=== PATIENT | female | born 1995 | race African-American/Black ===

== ENCOUNTER 2017-07-05 18:17 | Emergency (ER) | payer SELFPAY ==
[2017-07-05 19:20] LABS: #Basophils 0.1 thou/uL (0.0-0.2); #Eosinphils 0.1 thou/uL (0.0-0.7); #Lymphocytes 1.6 thou/uL (1.20-3.40); #Monocytes 0.5 thou/uL (0.11-0.59); #Neutrophils 4.1 thou/uL (1.40-6.50); %Basophils 0.9 % (0.0-1.0); %Eosinophils 0.9 % (0.0-10.0); %Lymphocytes 25.8 % (21.0-51.0); %Monocytes 7.6 % (0.0-10.0); %Neutrophils 64.8 % (42.0-75.0); Hemoglobin 12.3 g/dL (12.0-16.0); Mean Corpuscular Hemoglobin 30.6 pg (27.0-31.0); Mean Corpuscular Volume 92.5 fl (81.0-99.0); Mean Platelet Volume 6.6 fL (7.4-10.4); Platelet Count 323 thou/uL (130-400); RBC Distribution Width 11.2 % (11.5-14.5); Red Blood Cell (RBC) Count 4.04 mill/uL (4.20-5.40); White Blood Cell (WBC) Count 6.3 thou/uL (4.8-10.8)
[2017-07-05 19:37] LABS: Bilirubin Negative (Negative); Blood, Urine Negative (Negative); Clarity CLEAR (Clear); Glucose, Urine (Dipstick) Negative (Negative); Leukocyte Negative (Negative); Nitrite Negative (Negative); Protein, Urine (Dipstick) Negative (Neg-Trace); Specific Gravity, Urine 1.027 (1.002-1.036); pH, Urine 6.5 (5.0-9.0)
[2017-07-05 19:40] LABS: ALT (SGPT) 12 U/L (8-55); AST (SGOT) 12 U/L (5-34); Albumin 4.2 g/dL (3.5-5.0); Alkaline Phosphatase 55 U/L (40-150); Anion Gap 10 mmol/L (10-20); BUN (Urea Nitrogen) 16 mg/dL (7.0-18.7); Bilirubin, Total 0.3 mg/dL (0.2-1.2); Calc. Creatinine Clearance 0 mL/min (70-130); Calcium 9.1 mg/dL (7.8-10.44); Carbon Dioxide 24 mmol/L (22-29); Chloride 106 mmol/L (98-107); Estimated GFR-MDRD Greater than 90; Glucose 97 mg/dL (70-105); Potassium 3.9 mmol/L (3.5-5.1); Protein, Total 7.2 g/dL (6.0-8.3); Sodium 136 mmol/L (136-145)
== END 2017-07-05 22:15 | disposition home or self-care (01) ==
LOC: ERS 18:17
DX: O99.89 Other specified diseases and conditions complicating pregnancy, childbirth and the puerperium (principal); R10.9 Unspecified abdominal pain; Z3A.01 Less than 8 weeks gestation of pregnancy
CPT/HCPCS: 36415; 80053; 81003; 84702; 85025

== ENCOUNTER 2017-08-06 13:14 | Emergency (ER) | payer SELFPAY | END 2017-08-06 15:36 | disposition left against medical advice (07) | LOC: ERS 13:14 | DX: Z53.21 Procedure and treatment not carried out due to patient leaving prior to being seen by health care provider (principal) ==

== ENCOUNTER 2017-10-04 09:06 | Outpatient (CLI) | payer BC | END 2017-10-04 09:07 | disposition home or self-care (01) | LOC: BICULT 09:06 | PROVIDERS: ATTEND Nurse Practitioner | DX: O09.92 Supervision of high risk pregnancy, unspecified, second trimester (principal) | CPT/HCPCS: 76805 ==

== ENCOUNTER 2018-02-13 07:30 | Inpatient (IN) | payer BC, OTHER ==
[2018-02-13] MEDS: Lactated Ringer's 1,000 ML IV SCH ×2 (10:47→12:43)
[2018-02-13] MEDS ORDERED: Ondansetron PF 4 MG/2 ML Vial IVP PRN ×3 (10:53→17:03)
[2018-02-13] MEDS ORDERED: CEFAZOLIN/Water 2 GM/20 ML SYRINGE SLOW IVP SCH (11:00)
[2018-02-13] MEDS ORDERED: CEFAZOLIN 2 GM/50 ML-DEXTROSE 2 GM in Premix Bag 1 BAG IVPB SCH (11:00)
[2018-02-13] MEDS ORDERED: Bicitra 30 ML UDCUP PO SCH (11:00)
[2018-02-13] MEDS ORDERED: Promethazine HCl 25 MG/ML VIAL IM PRN ×2 (11:08)
[2018-02-13] MEDS ORDERED: diphenhydrAMINE 50 MG/ML VIAL IVP PRN ×2 (11:08→19:14)
[2018-02-13] MEDS ORDERED: Eucerin (Mineral Oil/Petrolatum,White) 30 gm Jar TOP PRN (11:08)
[2018-02-13] MEDS ORDERED: Naloxone HCl 0.4 mg/ml Vial IVP PRN ×4 (11:08→19:15)
[2018-02-13] MEDS ORDERED: Ondansetron HCl/PF 4 MG/2 ML Vial IVP PRN (11:08)
[2018-02-13] MEDS ORDERED: Morphine Sulfate 2 MG/ML SYRINGE SLOW IVP PRN (11:08)
[2018-02-13] MEDS ORDERED: Promethazine HCl 25 MG/ML VIAL SLOW IVP PRN (11:08)
[2018-02-13] MEDS ORDERED: Promethazine HCl 25 MG SUPP PR PRN (11:08)
[2018-02-13] MEDS ORDERED: Ketorolac Tromethamine 30 MG/ML VIAL IVP PRN (11:08)
[2018-02-13] MEDS ORDERED: Naloxone HCl 0.4 mg/ml Vial IV PRN (11:08)
[2018-02-13 11:09] LABS: Hemoglobin 12.3 g/dL (12.0-16.0); Mean Corpuscular HGB CONC 33.8 g/dL (32.0-36.0); Mean Corpuscular Hemoglobin 31.2 pg (27.0-31.0); Mean Corpuscular Volume 92.2 fL (78.0-98.0); Platelet Count 238 thou/uL (130-400); RBC Distribution Width 12.7 % (11.5-14.5); Red Blood Cell (RBC) Count 3.94 mill/uL (4.20-5.40); White Blood Cell (WBC) Count 6.6 thou/uL (4.8-10.8)
[2018-02-13] MEDS ORDERED: Communication Order-Pharmacy FS SCH ×2 (11:15→19:15)
[2018-02-13 11:47] LABS: HBSAg Index 0.21 S/CO (0-0.99); Hep B Surf Ag Non-Reactive S/CO (NonReactive); Syphilis Antibody Nonreactive (Nonreactive); Syphilis Antibody Index 0.05 S/CO (<1.00 Non-Reactive)
[2018-02-13 11:55] VITALS: BMI 29.9
[2018-02-13] MEDS ORDERED: Succinylcholine Chloride 20 MG/ML 10 ml SYRINGE FS ONE (12:44)
[2018-02-13] MEDS ORDERED: Oxytocin 10 UNITS/ML VIAL ONE ×2 (12:44→13:44)
[2018-02-13] MEDS ORDERED: PROPOFOL 0 ML ONE (12:44)
[2018-02-13] MEDS ORDERED: Morphine PF 1 MG/ML SYR ONE (12:45)
[2018-02-13] MEDS ORDERED: PHENYLEPHRINE-NS 100 MCG/ML 10 ML SYRINGE ONE (12:51)
[2018-02-13] MEDS ORDERED: Ondansetron PF 4 MG/2 ML Vial ONE (13:38)
[2018-02-13] MEDS ORDERED: Ketorolac Tromethamine 30 MG/ML VIAL ONE (13:52)
[2018-02-13] MEDS ORDERED: NS / Oxytocin 40 units/1000ml 1,000 ML IV SCH (17:03)
[2018-02-13] MEDS ORDERED: Bisacodyl 10 MG SUPP PR PRN (17:03)
[2018-02-13] MEDS ORDERED: Lanolin Ointment 7 GM TUBE TOP PRN (17:03)
[2018-02-13] MEDS ORDERED: diphenhydrAMINE 25 MG CAP PO PRN (17:03)
--- NOTE | 2018-02-13 20:06 | PDOC.OPDEL ---
OB Operative/Delivery Note Delivery Dr/Surgeon: Leo Paula Assist: Shikha, PGY-2 Pre-Delivery Diagnosis: scheduled section Procedure/Post Delivery Dx: repeat low transverse CS - Additional Findings/Plan Placenta delivered: manual removal findings: low transverse hysterotomy without extension, normal uterus, normal tubes, normal ovaries Compilations/Other Findings: Procedure Note Date of Procedure: 02/13/2018 Resident Surgeon: Kennedy Trivedi, PGY-2 Attending Surgeon: Leo Paula Procedure: Repeat low transverse caesarean section Preoperative Diagnosis: 1)Term intrauterine 2)Previous Postoperative Diagnosis: 1)same as above plus any other findings during surgery Anesthesia: spinal Indications: The patient is a 22 year old female at 39.2 weeks gestation who presents for a repeat scheduled . Procedure in Detail: After risks, benefits, and alternatives were explained to the patient, she gave informed consent. Pre-operative antibiotics included Cefazolin 2 gram IV. The patient was taken to the operating room and spinal anesthesia was initiated. She was placed in the supine position with a left tilt and prepped and draped in usual sterile fashion. A Pfannenstiel incision was made with a scalpel and carried down to the level of the fascia which was sharply nicked. The fascial cut was extended bilaterally with curved Ace sissors. The inferior and superior edges of the cut fascial edges were elevated with Giancarlo clamps and the underlying rectus muscles were sharply and bluntly dissected free. The recti were divided digitally and retracted manually. The muscle had to be extended with bovie to make space for delivery. The peritoneum was entered bluntly and retracted manually. Bladder blade was placed. A low transverse score was made with the scalpel and the uterus was entered in the midline with the scalpel. Clear fluid was seen. The hysterotomy was extended manually. The was noted to be vertex and was easily delivered by fundal pressure. Mouth and nares were bulb suctioned. Cord clamped and cut and grossly normal male was handed to waiting nurse. Cord blood was obtained. Placenta was manually extracted, found to be intact with 3 vessel cord and discarded. The uterus was externalized and the endometrium was curetted with a dry lap. The bladder blade was replaced and the uterus was closed with a running locking 0-Vicryl. 2 horizontal matress 0- vicryl suture had to be place over the hysterotomy. There was noted to be a bleed on the posterior lower segment of the uterus. The myometrium was noted to be thin and likely bleed from closing hysterotomy. This was closed with an 0- vicryl horizontal matress. Following this hemostasis was noted. The abdomen was irrigated with saline and suctioned free of clots. The uterus was internalized and the hysterotomy was again noted to be hemostatic. The pertioneum was then reapproximanted with 3-0 vicryl in non-locking running suture. The muscle which had to be extended was repaired in with a 3-0 vicryl interrupted suture. The fascia was closed with a running non-locking 0-PDS suture. The subcutaneous tissue was irrigated and there were no bleeders. The subq was then approximated with 3-0 vicryl in interrupted fashion. The skin was approximated with di and a pressure dressing was placed. All counts were correct. The patient tolerated the procedure well and was taken to the recovery room in stable condition. Estimated Blood Loss: 800 ml Complications: NoneSpecimens: Cord blood sent to lab for blood type Findings: Grossly normal male/female with apgars of 9 and 9.. Grossly normal placenta with 3 vessel cord discarded Drains: Toure to gravity draining clear urine Post delivery plan: routine recovery
[2018-02-13] MEDS ORDERED: Ibuprofen 800 MG TAB PO SCH (22:00)
[2018-02-13] MEDS ORDERED: Meperidine HCl/PF 25 MG/ML VIAL IM PRN (23:15)
[2018-02-13] MEDS ORDERED: HYDROcodone/Acetaminophen 5/325 mg Tablet PO PRN (23:15)
[2018-02-13] MEDS: Ferrous Sulfate 325 MG TAB PO SCH (23:38)
[2018-02-13] MEDS: Docusate Calcium (SURFAK) 240 MG CAP PO SCH (23:38)
[2018-02-14] MEDS: Ketorolac Tromethamine 30 MG/ML VIAL IVP PRN ×2 (00:39→07:28)
[2018-02-14 06:19] LABS: Hemoglobin 9.4 g/dL (12.0-16.0); Mean Corpuscular HGB CONC 33.5 g/dL (32.0-36.0); Mean Corpuscular Hemoglobin 31.5 pg (27.0-31.0); Mean Platelet Volume 7.3 fL (7.4-10.4); Platelet Count 180 thou/uL (130-400); RBC Distribution Width 12.6 % (11.5-14.5); Red Blood Cell (RBC) Count 2.98 mill/uL (4.20-5.40); White Blood Cell (WBC) Count 7.5 thou/uL (4.8-10.8)
[2018-02-14] MEDS ORDERED: Sodium Chloride 0.9% 10 ML ONE ×2 (07:25→19:19)
[2018-02-14] MEDS: Prenatal Vitamin 1 TAB PO SCH (08:58)
[2018-02-14] MEDS: Docusate Calcium (SURFAK) 240 MG CAP PO SCH ×2 (08:58→20:12)
[2018-02-14] MEDS: Ferrous Sulfate 325 MG TAB PO SCH ×2 (08:58→20:12)
[2018-02-14] MEDS: Simethicone Chewable 80 MG TAB PO PRN ×3 (12:00→21:22)
[2018-02-14] MEDS: Ibuprofen 800 MG TAB PO SCH ×2 (13:35→21:22)
[2018-02-14] MEDS: HYDROcodone/Acetaminophen 5/325 mg Tablet PO PRN ×2 (15:50→20:12)
[2018-02-15] MEDS: HYDROcodone/Acetaminophen 5/325 mg Tablet PO PRN ×5 (02:05→20:49)
[2018-02-15] MEDS: Ibuprofen 800 MG TAB PO SCH ×2 (05:50→13:35)
[2018-02-15] MEDS: Simethicone Chewable 80 MG TAB PO PRN ×2 (06:09→12:13)
[2018-02-15] MEDS: Prenatal Vitamin 1 TAB PO SCH (08:24)
[2018-02-15] MEDS: Docusate Calcium (SURFAK) 240 MG CAP PO SCH (08:24)
[2018-02-15] MEDS: Ferrous Sulfate 325 MG TAB PO SCH (08:25)
[2018-02-15 11:45] VITALS: TEMP 98.3
[2018-02-15 21:09] VITALS: BP 137/93
== END 2018-02-15 20:56 | disposition home or self-care (01) | DRG 788 ==
LOC: L&D 09:54 → 3SW 17:03
PROVIDERS: ADMIT Family Medicine; ATTEND Family Medicine
PROC: 10D00Z1 Extraction of Products of Conception, Low, Open Approach (ICD-10-PCS; principal; 2018-02-13)
DX: O34.211 Maternal care for low transverse scar from previous cesarean delivery (principal); Z3A.39 39 weeks gestation of pregnancy; Z37.0 Single live birth
CPT/HCPCS: 36415; 51702; 85027; 86780; 86850; 86900; 86901; 87340; J1200; J1885; J2274; J2405; J2590; J2704

== ENCOUNTER 2019-03-05 19:18 | Emergency (ER) | payer BC, OTHER | END 2019-03-05 22:03 | disposition home or self-care (01) | LOC: ERS 19:18 | DX: K02.9 Dental caries, unspecified (principal); K03.81 Cracked tooth | CPT/HCPCS: 99282 ==

== ENCOUNTER 2019-06-23 18:10 | Emergency (ER) | payer OTHER, SELFPAY ==
[2019-06-24 11:36] LABS: SARS-CoV-2 MS2 Positive; SARS-CoV-2 N Gene Positive; SARS-CoV-2 S Gene Positive; SARS-CoV-2 orf1ab Positive
== END 2019-06-23 18:59 | disposition home or self-care (01) ==
LOC: ERS 18:10
DX: U07.1 COVID-19 (principal)
CPT/HCPCS: 87635; 99283; U0003

== ENCOUNTER 2019-07-16 03:00 | Emergency (ER) | payer BC, SELFPAY ==
[2019-07-16 03:40] LABS: Bacteria/HPF None Seen HPF (None Seen); Bilirubin Negative (Negative); Blood, Urine Negative (Negative); Clarity Clear (Clear); Glucose, Urine (Dipstick) Normal (Negative); Leukocyte 250 Leu/uL (Negative); Mucous/LPF 1+ LPF (<2+); Nitrite Negative (Negative); Protein, Urine (Dipstick) 20 mg/dL (Neg-Trace); Squamous Epithelial 0-3 HPF (0-3); WBC/HPF Greater than 50 HPF (0-3)
== END 2019-07-16 04:24 | disposition home or self-care (01) ==
LOC: ERS 03:00
DX: N39.0 Urinary tract infection, site not specified (principal)
CPT/HCPCS: 81003; 81015; 87077; 87086; 87186; 99283

== ENCOUNTER 2019-11-25 22:08 | Emergency (ER) | payer OTHER, SELFPAY | END 2019-11-25 23:03 | disposition home or self-care (01) | LOC: ERS 22:08 | DX: M79.642 Pain in left hand (principal); M79.641 Pain in right hand | CPT/HCPCS: 99281 ==

== ENCOUNTER 2019-12-09 22:23 | Emergency (ER) | payer SELFPAY ==
[2019-12-09 22:54] LABS: Bilirubin Negative (Negative); Blood, Urine Negative (Negative); Clarity Clear (Clear); Glucose, Urine (Dipstick) Normal (Negative); Ketone, Urine Negative (Negative); Leukocyte Negative Leu/uL (Negative); Nitrite Negative (Negative); Protein, Urine (Dipstick) Negative (Neg-Trace); Specific Gravity, Urine 1.024 (1.002-1.036); Urobilinogen Normal mg/dL (Less than 2); pH, Urine 6.5 (5.0-9.0)
[2019-12-09 22:56] LABS: Pregnancy Test - Urine (BHCG) Negative (Negative)
[2019-12-09 22:57] LABS: Pregu Control Background? CLEAR/WHITE (CLR/WHITE); Pregu Control Bar Appear? YES (CONTROL BAR); Specific Gravity 1.024 (1.002-1.036)
[2019-12-09] MEDS ORDERED: Ketorolac Tromethamine 30 MG/ML VIAL ONE (23:13)
[2019-12-09] MEDS ORDERED: Metoclopramide HCl 10 MG/2 ML VIAL ONE (23:13)
[2019-12-09] MEDS ORDERED: diphenhydrAMINE 50 MG/ML VIAL ONE (23:13)
== END 2019-12-10 00:08 | disposition home or self-care (01) ==
LOC: ERS 22:23
DX: R51.9 Headache, unspecified (principal); R11.2 Nausea with vomiting, unspecified
CPT/HCPCS: 81003; 81025; 96365; 96375; J1200; J1885; J2765

== ENCOUNTER 2020-07-08 19:21 | Emergency (ER) | payer SELFPAY | END 2020-07-08 19:49 | disposition home or self-care (01) | LOC: ERS 19:21 | DX: K64.4 Residual hemorrhoidal skin tags (principal) | CPT/HCPCS: 99282 ==

== ENCOUNTER 2020-09-24 18:21 | Emergency (ER) | payer BC, SELFPAY ==
[2020-09-25 16:48] LABS: SARS-CoV-2 PCR by NAA Not Detected (NotDetected)
== END 2020-09-24 20:42 | disposition home or self-care (01) ==
LOC: ERS 18:21
DX: R07.81 Pleurodynia (principal); R05 Cough; Z20.822 Contact with and (suspected) exposure to COVID-19
CPT/HCPCS: 99284; U0003; U0005

== ENCOUNTER 2021-07-13 19:16 | Emergency (ER) | payer BC | END 2021-07-13 20:09 | disposition home or self-care (01) | LOC: ERS 19:16 | DX: B07.9 Viral wart, unspecified (principal) | CPT/HCPCS: 99283 ==

== ENCOUNTER 2022-08-23 17:40 | Emergency (ER) | payer SELFPAY ==
[2022-08-23 18:14] LABS: #Monocytes 0.3 thou/uL (0.11-0.59); #Neutrophils 1.9 thou/uL (1.40-6.50); %Basophils 0.2 % (0.0-1.0); %Eosinophils 0.9 % (0.0-10.0); %Lymphocytes 48.9 % (21.0-51.0); %Monocytes 6.6 % (0.0-10.0); %Neutrophils 43.4 % (42.0-75.0); Hemoglobin 11.4 g/dL (12.0-16.0); Mean Corpuscular HGB CONC 33.2 g/dL (32.0-36.0); Mean Corpuscular Hemoglobin 29.6 pg (27.0-31.0); Mean Corpuscular Volume 89.1 fl (78.0-98.0); Platelet Count 293 10x3/uL (130-400); RBC Distribution Width 12.9 % (11.5-14.5); Red Blood Cell (RBC) Count 3.85 mill/uL (4.20-5.40); White Blood Cell (WBC) Count 4.4 10x3/uL (4.8-10.8)
[2022-08-23 18:27] LABS: Prothrombin Time 13.6 sec (12.0-14.7)
[2022-08-23 19:05] LABS: ALT (SGPT) 16 U/L (8-55); AST (SGOT) 19 U/L (5-34); Albumin 4.2 g/dL (3.5-5.0); Alkaline Phosphatase 75 U/L (40-110); Anion Gap 12 mmol/L (10-20); BUN (Urea Nitrogen) 16 mg/dL (7.0-18.7); Bilirubin, Total 0.4 mg/dL (0.2-1.2); Calc. Creatinine Clearance 0 mL/min (70-130); Calcium 9.4 mg/dL (7.8-10.44); Carbon Dioxide 23 mmol/L (22-29); Chloride 108 mmol/L (98-107); Estimated GFR 113; Globulin 3.2 g/dL (2.4-3.5); Glucose 99 mg/dL (70-105); Potassium 3.6 mmol/L (3.5-5.1); Protein, Total 7.4 g/dL (6.0-8.3); Sodium 139 mmol/L (136-145)
== END 2022-08-23 18:51 | disposition home or self-care (01) ==
LOC: ERS 17:40
DX: K60.2 Anal fissure, unspecified (principal); D72.819 Decreased white blood cell count, unspecified
CPT/HCPCS: 36415; 80053; 85025; 85610; 85730; 86850; 86900; 86901; 99284

== ENCOUNTER 2024-01-14 09:18 | Emergency (ER) | payer SELFPAY ==
[2024-01-14 11:52] LABS: ALT (SGPT) 13 U/L (8-55); AST (SGOT) 17 U/L (5-34); Albumin 3.8 g/dL (3.5-5.0); Alkaline Phosphatase 79 U/L (40-110); Anion Gap 12 mmol/L (10-20); BHCG - Serum Negative (NEGATIVE); BUN (Urea Nitrogen) 14 mg/dL (7.0-18.7); Bilirubin, Total 0.3 mg/dL (0.2-1.2); Calc. Creatinine Clearance 0 mL/min (70-130); Calcium 8.8 mg/dL (7.8-10.44); Carbon Dioxide 23 mmol/L (22-29); Chloride 104 mmol/L (98-107); Estimated GFR 123; Globulin 3.2 g/dL (2.4-3.5); Glucose 101 mg/dL (70-105); Pregs Control Background? CLEAR/WHITE (CLR/WHITE); Pregs Control Bar Appear? YES (CONTROL BAR); Sodium 135 mmol/L (136-145)
[2024-01-14 13:39] LABS: Red Blood Cell (RBC) Count 4.06 mill/uL (4.20-5.40)
[2024-01-14 13:40] LABS: %Basophils 0.1 % (0.0-1.0); %Eosinophils 1.3 % (0.0-10.0); %Lymphocytes 29.1 % (21.0-51.0); %Monocytes 6.6 % (0.0-10.0); %Neutrophils 62.6 % (42.0-75.0); Hematocrit 36.1 % (36.0-47.0); Hemoglobin 11.9 g/dL (12.0-16.0); Mean Corpuscular Hemoglobin 29.3 pg (27.0-31.0); Mean Corpuscular Volume 88.9 fL (78.0-98.0); Mean Platelet Volume 9.2 fL (7.4-10.4); Platelet Count 319 10x3/uL (130-400); RBC Distribution Width 12.3 % (11.5-14.5)
[2024-01-14 13:41] LABS: #Basophils Less than 0.03 10x3/uL (0.0-0.2)
[2024-01-14 14:01] LABS: Bacteria/HPF None Seen HPF (None Seen); Bilirubin Negative (Negative); Blood, Urine Negative (Negative); CAUTI Indications for Culture Dysuria,urgency,freq; Clarity Clear (Clear); Glucose, Urine (Dipstick) Normal (Negative); Ketone, Urine Negative (Negative); Leukocyte Negative Leu/uL (Negative); Nitrite Negative (Negative); Protein, Urine (Dipstick) Negative (Neg-Trace); RBC/HPF None Seen HPF (0-3); Squamous Epithelial 0-3 HPF (0-3); Urobilinogen Normal mg/dL (Less than 2); WBC/HPF 0-3 HPF (0-3); pH, Urine 6.5 (5.0-9.0)
[2024-01-14 14:11] LABS: Specific Gravity, Urine 1.051 (1.002-1.036)
[2024-01-14 14:12] LABS: Urine Culture Reflex No No
== END 2024-01-14 15:02 | disposition home or self-care (01) ==
LOC: ERS 09:18
DX: N90.7 Vulvar cyst (principal)
CPT/HCPCS: 74177; 76856; 80053; 81001; 84703; 85025; 87480; 87510; 87660; 93976